=== PATIENT | male | born 1990 | race Caucasian/White ===

== ENCOUNTER 2021-12-19 14:22 | Emergency (ER) | payer SELFPAY ==
[2021-12-19] MEDS ORDERED: Lidocaine 1% (PF) 30 ML VIAL ONE (17:46)
[2021-12-19] MEDS ORDERED: Bacitracin 1 PK ONE (17:46)
[2021-12-19] MEDS ORDERED: Cephalexin 500 MG CAP ONE (18:07)
[2021-12-19] MEDS ORDERED: HYDROcodone/Acetaminophen 5/325 mg Tablet ONE (18:07)
[2021-12-19] MEDS ORDERED: Ibuprofen 800 MG TAB ONE (18:07)
== END 2021-12-19 18:34 | disposition home or self-care (01) ==
LOC: MADERS 14:22
DX: S61.313A Laceration without foreign body of left middle finger with damage to nail, initial encounter (principal); F17.210 Nicotine dependence, cigarettes, uncomplicated; W27.0XXA Contact with workbench tool, initial encounter
CPT/HCPCS: 64450; J2001